=== PATIENT | female | born 1985 | race Caucasian/White ===

== ENCOUNTER 2018-07-15 09:18 | Emergency (ER) | payer BC, OTHER ==
[~2018-07-15] VITALS: Ht 162.6 cm; Wt 132.9 kg
[2018-07-15 09:57] LABS: ABSOLUTE NEUTROPHILS 14.9 thou/uL (1.4-8.2); BASOPHILS 0.6 % (0.0-2.0); HEMOGLOBIN 11.5 gm/dL (12.0-15.0); LYMPHOCYTES 11.6 % (24.0-44.0); MCH 23.1 pg (26.0-34.0); MCV 72.2 fL (80.0-100.0); MONOCYTES 4.5 % (1.0-8.0); PLATELET COUNT 431 thou/uL (150-400); POLYS 82.3 % (36.0-66.0); RBC 4.99 mil/uL (4.20-5.00); RDW 16.9 % (10.5-14.5); WBC 18.1 thou/uL (4.0-11.0)
[2018-07-15 10:11] LABS: CALCIUM 9.9 mg/dL (8.5-10.1); CREATININE 0.7 mg/dL (0.6-1.0); POTASSIUM 3.6 mmol/L (3.5-5.1)
[2018-07-15 10:17] LABS: ALBUMIN 3.3 g/dL (3.4-5.0); TOTAL BILIRUBIN 0.3 mg/dL (<0.1-1.0); TOTAL PROTEIN 8.3 g/dL (6.4-8.2)
[2018-07-15 10:43] LABS: ANISOCYTOSIS 1+; MICROCYTES 1+
[2018-07-15 11:14] LABS: URINE BILIRUBIN NEGATIVE (Negative); URINE BLOOD NEGATIVE (Negative); URINE CLARITY CLEAR; URINE COLOR YELLOW; URINE GLUCOSE-RANDOM* NEGATIVE (Negative); URINE KETONES NEGATIVE (Negative); URINE LEUKOCYTES-REFLEX NEGATIVE (Negative); URINE NITRITE-REFLEX NEGATIVE (Negative); URINE PROTEIN (DIPSTICK) NEGATIVE (Negative); URINE SPECIFIC GRAVITY <= 1.005 (1.005-1.035); URINE UROBILINOGEN 0.2 E.U./dl (0.2-1.0)
[2018-07-15] MEDS ORDERED: FLAGYL500 M1 PO (11:28)
[2018-07-15] MEDS ORDERED: CIPRO500 MG PO (11:28)
[2018-07-15] MEDS ORDERED: ONDANSETRON HCL4 M2 PO (11:28)
[2018-07-15] MEDS ORDERED: NORCO 5-325 TA1 EACH PO (11:28)
[2018-07-15] MEDS ORDERED: COLESTIPOL HCL1 G1 PO (11:37)
[2018-07-15] MEDS ORDERED: OMEPRAZOLE 20 M20 M1 PO (11:37)
[2018-07-15 12:20] VITALS: BP 147/79
== END 2018-07-15 12:20 | disposition home or self-care (01) ==
LOC: ER 09:18
PROVIDERS: Nurse Practitioner Family
DX: K57.92 Diverticulitis of intestine, part unspecified, without perforation or abscess without bleeding (principal); R11.2 Nausea with vomiting, unspecified; Z88.1 Allergy status to other antibiotic agents